=== PATIENT | male | born 1990 | race African-American/Black ===

== ENCOUNTER 2019-07-20 18:05 | Emergency (ER) | payer MEDICAID ==
[~2019-07-20] VITALS: Ht 165.1 cm; Wt 99.1 kg
[2019-07-20 18:33] VITALS: Ht 165.1 cm; Wt 99.1 kg
[2019-07-20] MEDS ORDERED: DOXYCYCLINE HY100 M2 PO (19:36)
[2019-07-20 20:25] LABS: APTT 24.1 SECONDS (22.8-39.4); INR 0.99 (0.85-1.17); PROTIME 13.1 SECONDS (11.6-15.0)
[2019-07-20 20:27] LABS: CALC OSMOLALITY 268 mosm/kg (275-300); CALCIUM 8.7 mg/dL (8.5-10.1); CARBON DIOXIDE 26.2 mmol/L (21.0-32.0); CHLORIDE - SERUM 99 mmol/L (98-107); CREATININE - SERUM 1.2 mg/dL (0.6-1.3); POTASSIUM - SERUM 3.8 mmol/L (3.5-5.1); SODIUM 136 mmol/L (136-145); UREA NITROGEN 8 mg/dL (7-18); eGFR NON AFRICAN AMERICAN 75 mL/min (90-120)
[2019-07-20 20:27] LABS: BASOPHILS 0.1 % (0-2); EOSINOPHILS 0.4 % (0-7); HEMOGLOBIN 15.9 g/dL (13.5-17.5); IMMATURE GRANULOCYTES 0.4 % (0-5); LYMPHOCYTES 8.2 % (15-50); MCH 30.8 pg (26.0-34.0); MCHC 33.1 g/dL (31.0-37.0); MCV 92.8 fL (80.0-100.0); MEAN PLATELET VOLUME 9.8 fL (7.4-10.4); MONOCYTES 5.4 % (2-11); NEUTROPHILS 85.5 % (40-80); PLATELET COUNT 214 10x3/uL (130-400); RBC 5.17 10x6/uL (4.20-6.10); RDW 14.2 % (11.5-14.5); WBC 18.2 10x3/uL (4.8-10.8)
[2019-07-20 20:28] LABS: GLUCOSE 76 mg/dL (74-106)
[2019-07-20 20:42] LABS: ALKALINE PHOSPHATASE 75 U/L (30-120); ALT (SGPT) 26 U/L (10-68); BILIRUBIN - TOTAL 2.08 mg/dL (0.2-1.3); CKMB 0.3 U/L (0.0-3.6); CREATINE KINASE 224 UL (21-232); PROTEIN - SERUM 8.2 g/dL (6.4-8.2)
[2019-07-20 20:43] LABS: TROPONIN-I < 0.017 ng/mL (0.000-0.060)
[2019-07-20 21:36] VITALS: BP 143/78
== END 2019-07-20 21:38 | disposition home or self-care (01) ==
LOC: D.ER 18:05
PROVIDERS: Emergency Medicine; Family Medicine
DX: L03.114 Cellulitis of left upper limb (principal); D72.829 Elevated white blood cell count, unspecified; J45.909 Unspecified asthma, uncomplicated; Z72.0 Tobacco use